=== PATIENT | male | born 1975 | race African-American/Black ===

== ENCOUNTER 2016-11-30 05:04 | Emergency (ER) | payer SELFPAY ==
[~2016-11-30] VITALS: Ht 167.6 cm; Wt 88.5 kg
[2016-11-30 06:44] VITALS: BP 124/84
== END 2016-11-30 07:15 | disposition home or self-care (01) ==
LOC: ER 05:04
DX: S40.012A Contusion of left shoulder, initial encounter (principal); M79.602 Pain in left arm; F17.210 Nicotine dependence, cigarettes, uncomplicated; V43.52XA Car driver injured in collision with other type car in traffic accident, initial encounter; Y93.89 Activity, other specified; Y92.488 Other paved roadways as the place of occurrence of the external cause
CPT/HCPCS: 73030; 99284; Z7610